=== PATIENT | male | born 1950 | race Caucasian/White ===

== ENCOUNTER → 2017-12-17 11:36 | Outpatient (CLI) | payer MEDICARE, OTHER, SELFPAY ==
[2017-12-17 15:03] LABS: Hemoglobin A1c 5.7 % (4.2-6.3)
[2017-12-17 15:12] LABS: AST(SGOT) 19 U/L (15-37); Alanine Aminotransfer ALT/SGPT 23 U/L (16-61); Albumin, Serum 3.6 g/dL (3.2-5.0); Alkaline Phosphatase 47 U/L (45-117); Anion Gap 9 (5-15); BUN 17 mg/dL (7-18); BUN/Creat Ratio 16.7 RATIO (10-20); Calcium,Total 8.2 mg/dL (8.5-10.1); Chloride 110 mmol/L (98-107); Cholesterol 201 mg/dL (200); Creatinine, Serum 1.02 mg/dL (0.70-1.30); EST Glomerular Filtration Rate 77 mL/min (>60); Est Glom Filt Rate - Afr Amer 93 mL/min (>60); Globulin 3.6 g/dL (2.2-4.2); Glucose 93 mg/dL (74-106); High Density Lipoprotein 32 mg/dL; Potassium 4.3 mmol/L (3.5-5.1); Protein, Total 7.2 g/dL (6.4-8.2); Sodium Level 143 mmol/L (136-145); Thyroid Stim Hormone (TSH) 4.17 uIU/mL (0.358-3.74); Triglycerides 145 mg/dL; Very Low Density Lipoprotein 29 mg/dL (5-40)
[2017-12-18 11:04] LABS: T4 Free Direct 0.78 ng/dL (0.76-1.46)
[2017-12-19 14:38] LABS: PTHIN 62.7 pg/mL (18.4-80.1)
== END ==
PROVIDERS: Family Provider Family Medicine; PCP Family Medicine; Visit Provider Family Medicine
DX: E88.81 Metabolic syndrome and other insulin resistance (principal)
CPT/HCPCS: 36415; 80053; 80061; 83036; 83970; 84439; 84443

== ENCOUNTER → 2018-09-28 11:03 | Outpatient (CLI) | payer MEDICARE, OTHER, SELFPAY ==
[2018-09-28 13:21] LABS: ALB/GLOB Ratio 1.1 RATIO (0.9-2.4); AST(SGOT) 22 U/L (15-37); Alanine Aminotransfer ALT/SGPT 28 U/L (16-61); Albumin, Serum 3.6 g/dL (3.2-5.0); Alkaline Phosphatase 60 U/L (45-117); Anion Gap 10 (5-15); BUN 14 mg/dL (7-18); BUN/Creat Ratio 14.3 RATIO (10-20); Calcium,Total 8.6 mg/dL (8.5-10.1); Chloride 107 mmol/L (98-107); Cholesterol 228 mg/dL (200); Creatinine, Serum 0.98 mg/dL (0.70-1.30); EST Glomerular Filtration Rate 80 mL/min (>60); Est Glom Filt Rate - Afr Amer 97 mL/min (>60); Globulin 3.4 g/dL (2.2-4.2); Glucose 99 mg/dL (74-106); High Density Lipoprotein 34 mg/dL; Potassium 4.2 mmol/L (3.5-5.1); Sodium Level 142 mmol/L (136-145); Triglycerides 195 mg/dL; Very Low Density Lipoprotein 39 mg/dL (5-40)
== END ==
PROVIDERS: Family Provider Family Medicine; PCP Family Medicine; Referring Provider Family Medicine; Visit Provider Nurse Practitioner Family
DX: E78.00 Pure hypercholesterolemia, unspecified (principal)
CPT/HCPCS: 36415; 80053; 80061; 82306

== ENCOUNTER 2018-11-30 08:41 | Emergency (ER) | payer MEDICARE, OTHER, SELFPAY ==
[2018-11-30 08:43] VITALS: BP 138/79; PULSE 84; RESP 16; TEMP 36.8; O2SAT 96; BMI 32.1
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
== END 2018-11-30 09:20 | disposition home or self-care (01) ==
LOC: ED 09:16
PROVIDERS: Emergency Provider Emergency Medicine; Family Provider Family Medicine; PCP Family Medicine
DX: S61.411A Laceration without foreign body of right hand, initial encounter (principal); S61.511A Laceration without foreign body of right wrist, initial encounter; S50.12XA Contusion of left forearm, initial encounter; S50.11XA Contusion of right forearm, initial encounter; V49.40XA Driver injured in collision with unspecified motor vehicles in traffic accident, initial encounter; Y93.89 Activity, other specified
CPT/HCPCS: 99285

== ENCOUNTER → 2019-11-01 11:16 | Outpatient (CLI) | payer MEDICARE, OTHER, SELFPAY ==
[2019-11-01 15:46] LABS: Anion Gap 3 (5-15); BUN 14 mg/dL (7-18); BUN/Creat Ratio 13.9 RATIO (10-20); Calcium,Total 8.2 mg/dL (8.5-10.1); Chloride 108 mmol/L (98-107); Cholesterol 221 mg/dL (200); Creatinine, Serum 1.01 mg/dL (0.70-1.30); EST Glomerular Filtration Rate 77 mL/min (>60); Est Glom Filt Rate - Afr Amer 94 mL/min (>60); Glucose 93 mg/dL (74-106); High Density Lipoprotein 34 mg/dL; Potassium 4.4 mmol/L (3.5-5.1); Sodium Level 139 mmol/L (136-145); Triglycerides 134 mg/dL; Very Low Density Lipoprotein 27 mg/dL (5-40)
== END ==
PROVIDERS: PCP Family Medicine; Referring Provider Family Medicine; Visit Provider Nurse Practitioner Family
DX: Z00.00 Encounter for general adult medical examination without abnormal findings (principal); I10 Essential (primary) hypertension; Z13.220 Encounter for screening for lipoid disorders; Z12.5 Encounter for screening for malignant neoplasm of prostate
CPT/HCPCS: 36415; 80048; 80061; 84153; G0103

== ENCOUNTER → 2019-12-13 12:00 | Outpatient (CLI) | payer MEDICARE, OTHER, SELFPAY ==
--- NOTE | 2019-12-13 12:05 | RAD_ITS ---
HISTORY: right knee pain ADDITIONAL HISTORY: None provided. EXAMINATION/TECHNIQUE: XR Knee Complete 4 Views or More Right Number of images including paperwork: 4 COMPARISON: None FINDINGS: BONES: No acute fracture. JOINTS: No subluxation. Mild to moderate tricompartmental degenerative changes including joint space narrowing and small osteophytes, most pronounced in the medial compartment. SOFT TISSUES: No distinct foreign body. RAD/Knee 4 or More Views IMPRESSION: Degenerative changes without acute osseous abnormality. at 0719 Reported and signed by: Eve Reed MD Electronically Signed: Eve Reed MD at 7:18 EDT Tel , Service support ,
== END ==
PROVIDERS: PCP Family Medicine; Referring Provider Nurse Practitioner Adult Health; Visit Provider Nurse Practitioner Adult Health
DX: M25.561 Pain in right knee (principal)
CPT/HCPCS: 73564

== ENCOUNTER → 2019-12-16 10:39 | Outpatient (CLI) | payer MEDICARE, OTHER, SELFPAY ==
--- NOTE | 2019-12-16 10:43 | RAD_ITS ---
STUDY: X-RAY - PELVIS AND RIGHT HIP REASON FOR EXAM: Male, 69 years old. Right hip pain, history of polio TECHNIQUE: 3 views of the pelvis and hip. COMPARISON: None. FINDINGS: There is a non-specific bowel gas pattern. Normal visualized soft tissue structures. There are degenerative changes of the sacroiliac joints. Normal bilateral superior and inferior pubic rami. There are degenerative changes of the pubic symphysis with articular narrowing and sclerosis. Normal bilateral ischial tuberosities. There are bilateral degenerative changes of the hips, right greater than left characterized by joint space narrowing, subchondral sclerosis and marginal osteophytes. RAD/HIP, UNI W/ Pelvis 2-3 Views IMPRESSION: Bilateral degenerative changes of the hips, right greater than left. Electronically Signed: Chary Leon MD at 18:28 EDT Tel , Service support ,
== END ==
PROVIDERS: PCP Family Medicine; Referring Provider Family Medicine; Visit Provider Family Medicine
DX: M25.551 Pain in right hip (principal)
CPT/HCPCS: 73502

== ENCOUNTER → 2020-05-01 11:21 | Outpatient (CLI) | payer MEDICARE, OTHER, SELFPAY | PROVIDERS: PCP Family Medicine; Visit Provider Family Medicine | DX: Z00.00 Encounter for general adult medical examination without abnormal findings (principal) ==

== ENCOUNTER → 2020-07-20 12:19 | Outpatient (CLI) | payer MEDICARE, OTHER, SELFPAY ==
[2020-07-06 15:59] VITALS: BMI 32.5
[2020-07-20 13:22] LABS: AST(SGOT) 14 U/L (15-37); Alanine Aminotransfer ALT/SGPT 27 U/L (16-61); Albumin, Serum 3.7 g/dL (3.2-5.0); Alkaline Phosphatase 57 U/L (45-117); Anion Gap 3 (5-15); BUN 10 mg/dL (7-18); BUN/Creat Ratio 11.7 RATIO (10-20); Calcium,Total 8.6 mg/dL (8.5-10.1); Chloride 109 mmol/L (98-107); Creatinine, Serum 0.86 mg/dL (0.70-1.30); EST Glomerular Filtration Rate 94 mL/min (>60); Est Glom Filt Rate - Afr Amer 113 mL/min (>60); Globulin 3.6 g/dL (2.2-4.2); Glucose 99 mg/dL (74-106); Magnesium 2.5 mg/dL (1.6-2.6); Protein, Total 7.3 g/dL (6.4-8.2); Sodium Level 139 mmol/L (136-145)
== END ==
PROVIDERS: PCP Family Medicine; Referring Provider Family Medicine; Visit Provider Family Medicine
DX: R00.2 Palpitations (principal)
CPT/HCPCS: 36415; 80053; 83735

== ENCOUNTER 2020-10-25 10:59 | Observation (INO) | payer MEDICARE, OTHER, SELFPAY ==
[2020-07-06 15:59] VITALS: BMI 32.5
--- NOTE | 2020-10-09 22:58 | PCM.HP.BLA ---
History and Physical History and Physical [facility] Patient Name: Jonas Guerrero : 1950 From: RODY RAGLAND PA-C DATE OF SURGERY: 10/25/2020 SCHEDULED PROCEDURE: right total hip arthroplasty HISTORY OF PRESENT ILLNESS: This is a 69-year-old male who is been having ongoing pain in his right hip for several years. It is been progressively been getting worse over the past several months. His pain has been intermittent and aching as well as sore. Patient has increased pain going up and down stairs, walking and trying to pick things up from the floor. Pain can reach 4/10. He does have start up pain. Pain does not wake him at night but he does require to sleep with a pillow between his legs. He has difficulty with activities of daily living and occluding putting his socks and shoes on as well as shopping. He has difficulty with yard work due to the pain. He has tripped/stumbled due to the pain. Patient has attempted rest, ice, elevation and previous cortisone injections. Patient has also tried qyto-bah-qydtrif ibuprofen with minimal relief. He has been using a cane for ambulatory assistance. After failing conservative measures and discussing treatment options with Dr. Obie Chamorro he does wish to proceed with a right total hip arthroplasty. Patient does have history of polio as a kid and the left leg is shorter than the right. we are obtaining surgical clearance from the primary care physician Dr. Kurt Addison. He does have previous history of a DVT. REVIEW OF SYSTEMS: ROS: Const: Reports difficulty sleeping, but denies anorexia, anxiety, change in appetite, fever, weight change. CV: Denies chest pain, heart murmur, irregular heartbeat and peripheral vascular disease. Resp: Denies asthma, cough, pneumonia, sleep apnea, shortness of breath, tuberculosis and wheezing. GI: Denies constipation, diarrhea, heartburn, nausea, rectal itching, bloody stools and vomiting. : Denies incontinence. Musculo: Reports weakness, but denies leg swelling, pain and trouble walking. Skin: Denies Raynaud's, history of shingles and tattoo. Neuro: Denies ambulatory dysfunction, dizziness, numbness/tingling and tremor. Psych: Denies anxiety, depression, insomnia, mental illness and stress. Levon/Lymph: Denies anemia, bleeding/bruising tendency and past transfusion. Reviewed, no changes. PAST MEDICAL HISTORY: Advance Care Plan: No Advance Directives Effective Date: 06/19/2020 PMH: Medical Problems: Asthma, Arthritis, Polio (Childhood), DVT RT Leg 2010, Enlarged prostate Accidents: None Surgical Hx: Tonsillectomy - 1971-[place] Polio Related Surgery - 1958-[facility] 1978-[place] Vasectomy - (1994) Subderal Hematoma - (2011) Gallbladder - 2009 Anesthesia Complications: None Assistive Devices: Glasses Reviewed and updated. SOCIAL HISTORY: SH: Marital: .Occupation: Retired.Work Status: Retired.Hand Dominance: Left-Handed. Personal Habits: Cigarette Use: Former.Smokeless Tobacco: Never Used Smokeless Tobacco.E-Cigarette Use: Never used.Alcohol: Has consumed alcohol in the past.Drug Use: Denies Use.Enjoy Exercising: Exercises 1-3 x/month. Reviewed and updated. VITALS: Ht: 67.3 Wt: 209lb Wt k.802 BMI: 32.4 BP: 149/85 Pulse: 85 Resp: 14 T: 97.5 T: 36.4C Pain Level: 1 ALLERGIES: No Known Drug Allergy MEDICATIONS: Saw [place] 1po qday, Vitamin B Complex 1po qday, Vitamin C 500 mg 1 by mouth every day, Vitamin D3 25 mcg (1000 Ut) 2po bid, Garlic 1000 mg 1po qday, Ginkgo Biloba 120 mg 1po qday, Angelina Root 550 mg 1po qday, Coq-10 100 mg 1 by mouth every day, Resveratrol 1po qday, Grape Seed Extract 100 mg 1po qday, Turmeric Curcumin 500 mg 2po qdy, Milk Thistle 1000 mg 2po qday, Nathan Seed Oil Extract 1000 mg 2po qday, Vinegar Liquid 2 tablespoons daily, Quinapril HCL 5 mg 1po qday, [place] Oil , Ginsing Coimplex , Magnesium , Proair HFA 108 (90 Base) mcg/Act PRE-OP EXAM: General appearance:NORMAL Other: Eyes: Conjunctivae and lids: NORMAL Pupils: ERR Ears, Nose, Mouth, and Throat: NORMAL Other: Inspection of lips, teeth and gums: NORMAL Other: Neck: Examination of neck: no masses noted. Respiratory: Assessment of respiratory effort: NORMAL Other: Auscultation of lungs: clear to auscultation no wheezes, rhonchi or rales. Cardiovascular: Auscultation of heart: regular rate and rhythm, no murmurs, gallops or rubs. Exam of carotid arteries: NORMAL Other: Gastrointestinal: Exam of abdomen: soft, nontender, nondistended bowel sounds present. PHYSICAL EXAMINATION: Patient does walk with an antalgic gait. There is atrophy on the left when compared to the right. Right hip is cool to touch without erythema or signs of infection. Right hip flexion 70, internal rotation 3, external rotation 25. He has increased pain with range of motion of the thigh. Sensation intact to light touch. IMAGING STUDIES: Previous x-rays of the right hip reveal joint space narrowing, subchondral sclerosis, osteophyte formation consistent with moderate to severe stage 3-4 osteoarthritis. IMPRESSION: 1. Right hip osteoarthritis 2. History of DVT right leg 2010 3. Enlarged prostate 4. Asthma 5. History of polio in childhood PLAN: Dr. Obie Chamorro did discuss and review with the patient all treatment options including surgical versus nonsurgical options. Patient does wish to proceed with the above-stated procedure. Potential risks, benefits, and complications of the procedure were discussed in detail including but not limited to , infection, nerve and blood vessel damage, persistent pain, numbness, tingling, paresthesias, blood clot, pulmonary embolism, and requirement for possible further surgery. The patient expressed full understanding and has no further questions for the doctor. Patient does agree to proceed with the above-stated procedure and has signed the surgery consent form. We discussed the current risks associated with COVID 19. This does include the risk of exposure while in the hospital. Patient was reassured local hospitals have low infection rates and are taking all necessary precautions to avoid exposure to patients. In addition, we discussed strategies that can be used to help limit exposure including those that limit the patient's time in the hospital. Also using strategies to limit the patient's need for continued inpatient services after being discharged from the hospital. Patient was notified that we will need to comply with any screening or testing the hospital wishes to perform or that surgery may be delayed for any positive results. This dictation was created using voice recognition software. Phonetic and/or grammatical errors may exist. ___ I have re-examined the patient. There are no clinical changes since date of exam. ___ See progress notes for changes. ___ Dictated on admission Date: Time: Signature:
--- NOTE | 2020-10-17 10:06 | EKG12_ITS ---
Test Reason : PRE-OP Blood Pressure : / mmHG Vent. Rate : 070 BPM Atrial Rate : 070 BPM P-R Int : 140 ms QRS Dur : 080 ms QT Int : 368 ms P-R-T Axes : 037 027 020 degrees QTc Int : 397 ms Normal sinus rhythm Poor R- wave progression Confirmed by ANASTACIO CANELA, LUH ([id number]), magazine editor [place] ([id number]) on 10/18/2020 2:01:28 PM Referred By: Obie Chamorro Confirmed By:LUH CHAVES MD
[2020-10-17 11:00] LABS: Absolute Lymphocyte Count 1.11 X10^3/uL (0.83-4.51); Absolute Neutrophil Count 3.5 X10^3/uL (2.0-7.7); Basophil# 0.04 X10^3/uL; Basophil% 0.7 % (0-1); Eosinophil# 0.11 X10^3/uL; Eosinophils% 2.1 % (0-5); Hematocrit 42.9 % (40-54); Hemoglobin 14.5 g/dL (13.0-16.5); Lymphocyte # 1.11 X10^3/ul (0.83-4.51); Lymphocyte % 20.7 % (19-41); Mean Corp Hgb Conc 33.8 g/dL (32-36); Mean Corpuscular Hgb 29.9 pg (27.0-32.0); Mean Corpuscular Volume 88.5 fL (80-94); Mean Platelet Vol. 9.7 fl (6.2-12.0); Monocyte# 0.56 X10^3/uL; Monocyte% 10.5 % (0-10); NRBC Flagged by Analyzer 0 % (0-5); Neutrophil # 3.51 X10^3/uL (2.7-7.7); Neutrophil % 65.6 % (47-70); Platelet Count 193 K/mm3 (150-450); RBC Distribution Width CV 14.6 % (11.6-14.6); RBC Distribution Width SD 47.2 fl (35.1-43.9); Red Blood Count 4.85 M/mm3 (4.6-6.2); White Blood Count 5.4 K/mm3 (4.4-11.0)
[2020-10-17 11:27] LABS: Magnesium 2.2 mg/dL (1.6-2.6)
[2020-10-17 11:28] LABS: Anion Gap 6 (5-15); BUN 17 mg/dL (7-18); BUN/Creat Ratio 17.6 RATIO (10-20); Calcium,Total 8.4 mg/dL (8.5-10.1); Chloride 111 mmol/L (98-107); Creatinine, Serum 0.97 mg/dL (0.70-1.30); EST Glomerular Filtration Rate 81 mL/min (>60); Est Glom Filt Rate - Afr Amer 98 mL/min (>60); Glucose 99 mg/dL (74-106); Sodium Level 139 mmol/L (136-145)
[2020-10-21 09:29] LABS: Albumin, Serum 3.6 g/dL (3.2-5.0)
[2020-10-25] VITALS (13 sets, daily range): BP systolic 111–144; BP diastolic 63–81; PULSE 60–87; RESP 16–18; TEMP 36.5–37.1; O2SAT 95–100; BMI 32.4
--- NOTE | 2020-10-25 07:13 | OP.PCM_ITS ---
Report of Operation Date of Procedure: 10/25/20 Pre-Operative Diagnosis: Right hip primary osteoarthritis Post-Operative Diagnosis: Right hip primary osteoarthritis Surgery/Procedure Performed:: Right minimally invasive direct anterior total hip replacement Description of Surgical Findings:: Stable hip with equal leg length Surgeon: Obie Chamorro papier mache' molder: Gavin Medina Type of Anesthesia: Spinal Anesthesiologist: Maynor Zapata Special Medications: 2 g Ancef, 1 g TXA at incision, 1 g TXA closure, 10 mg Decadron, joint cocktail (5 mg Duramorph, 30 mL of 0.5% Ropivicaine, 1000 units of epinephrine, 30 mg of Toradol) Specimen's removed: Bony cuts Estimated Blood Loss (mL): 250 Fluids Replaced: 1100 mL crystalloid Description of Procedure: Components used: 1. Accolade 2 [place] femoral stem size 3 132? 2. Que trident 2 acetabular shell size 56 mm 3. Que X3 polyethylene F 4. [place] Biolox delta 36mm, 5mm femoral head Brief history operative indications: 69 yo M who failed conservative measures for their hip osteoarthritis. X-rays were consistent with osteoarthritis including joint space narrowing, osteophyte formation and subchondral cysts. Total hip replacement was discussed with the patient with risks and benefits including but not limited to blood loss, DVTs, PEs, neurovascular damage, dislocation, general risks of anesthesia including loss of life. Patient demonstrated an understanding medical clearance is obtained the patient was consented for surgery. Procedure: On the date of procedure the patient's right hip was marked in the preoperative area. Patient was then taken back to the operating room where anesthesia assumed control of the C-spine and airway and administered anesthetic. Patient was transferred to the operating table and placed in the supine position. The hips were placed at the break of the bed and a sacral bump was placed. The right lower extremity was then prepped out in a sterile fashion using chlorhexidine while the surgeon scrubbed. The PA was vital in the positioning of the patient. Upon reentering the room the right lower extremity was draped in the standard orthopedic fashion and the incision was marked. A timeout was called and everyone agreed upon the side, the site, the procedure be performed, antibody given, and patient's identity. At this time incision was made through skin, subcutaneous tissue, and fat down to fascia. The fascia was then incised and the TFL was retracted laterally. A retractor was placed on the lateral border of the femoral neck. Attention was directed to the inferior portion of the approach and all crossing vessels were identified and appropriately coagulated. A retractor was then placed on the medial portion of the femoral neck. The anterior capsule was then cleared of all soft tissue and then H shaped capsulotomy was made. The retractors were then placed inside the capsule. The femoral neck was identified and a cleanup cut was made. At this time a power corkscrew was used to remove the femoral head. Attention was then turned toward the acetabulum where the soft tissues were appropriately retracted and the acetabulum was sequentially reamed to 56 mm. A 56 mm cup was then selected and impacted into place. Acetabular liner was impacted into place and locking mechanism was verified. The position of the acetabular cup was then verified under live fluoroscopy. Attention was then turned to the femur. Soft tissue releases on the medial and lateral femoral neck were appropriately done, the leg was externally rotated and lateralized. A Johnston retractor was placed medially and proximally to the greater trochanter this allowed appropriate visualization and exposure of the femoral canal. Rongeour was then used to remove excess lateral bone. A canal finder and entry broach were used to open the proximal canal. Once we verified we were down the femoral canal we subsequently broached up to a size 3 femur. The appropriate neck was placed in the previously selected head was trialed with a 5 mm neck. Traction was pulled and the hip was reduced with internal rotation. Once it was appropriately reduced and stability was checked. There was minimal shuck, equal leg lengths and appropriate stability with hyperextension and external rotation as well as with 90? flexion and internal rotation. Fluoroscopy was then also used to verify the position of the components and leg lengths using the contralateral side for comparison. The trial components were then dislocated the proximal femur was again exposed and the components were removed from the wound. The final components were verified and opened. The wound was copiously irrigated out with normal saline. The acetabulum was checked for any residual debris. The final components were placed and impacted. Traction and internal rotation were again used to reduce the hip. After adequate reduction the hip remained stable with appropriate leg lengths. The final components were once again checked with live fluoroscopy and were found to be satisfactory. The wound was then copiously irrigated with normal saline once more, and hemostasis was obtained. Closure was then done using #1 Vicryl runner to close the fascia. A 2-0 vicryl interuppted sutures were used to close the subcutaneous skin. A 3-0 Monocryl and Steri-Strips were used for final skin closure. A Silverlon dressing was placed. Patient was awakened by anesthesia and transferred to [facility]. Patient was then transferred to the PACU for recovery. Postoperative plan: Patient will get 24 hours postop antibiotics. Patient will get in-house physical therapy and will be weight-bear as tolerated. Patient will follow up in office in 2 weeks for a wound check and x-rays. Aspirin 81 mg twice daily. During the course of the procedure the physician viscosity inspector (PE) played a vital role. Their intimate knowledge of my steps in the procedure aided in safe and expedient completion of the procedure. The PE played a vital rolls in positioning particularly in obtaining the appropriate positioning of the sacral bump. The PE was also vital in the retraction of soft tissues during the exposure and especially the femoral work as this is a vital part of the procedure to prevent complications and fractures. The PE was also vital and protecting soft tissues during times of bony cuts and reaming. He also played a vital role in closure with my direct supervision. The PE was also important during reduction and dislocation of the joint and trials intraoperatively. Complications No intraoperative complications Admit VTE Documentation VTE Present on Admission: No VTE Mechan Device Prophylaxis: SCD's and Thigh High JAYMIE Hose VTE Pharm Prophylaxis ordered?: Yes
[2020-10-25] MEDS: Celecoxib 200 MG Capsule 400 MG PO (08:38)
[2020-10-25] MEDS: Gabapentin 600 MG Tablet PO (08:38)
[2020-10-25] MEDS: Acetaminophen 500 MG Tablet 1000 MG PO ×2 (08:38→21:01)
[2020-10-25] MEDS: Lactated Ringers 1,000 ML 999 ML IV ×2 (08:39→11:30)
[2020-10-25] MEDS: Lactated Ringers 1,000 ML 100 ML IV ×2 (08:42→16:15)
[2020-10-25] MEDS: Cefazolin 2 GM in 0.9% Normal Saline 100 ML IV (10:21)
[2020-10-25 10:30] LABS: Bedside Glucose 98 mg/dL (70-110)
[2020-10-25] MEDS: dexAMETHasone 10 MG/ML Vial IV (10:35)
--- NOTE | 2020-10-25 11:15 | RAD_ITS ---
STUDY: X-RAY - PELVIS AND RIGHT HIP REASON FOR EXAM: Fluoroscopy for right hip arthroplasty. TECHNIQUE: 2 intraoperative images of the pelvis and hip. COMPARISON: Radiographs 12/16/2019. FINDINGS: There is a right hip arthroplasty without evidence of complication. 4.5 seconds of fluoroscopy time was used. Electronically Signed: Liborio Link MD at 14:15 EDT Tel , Service support , RAD/Hip 1 view with Pelvis
[2020-10-25] MEDS: Lactated Ringers 1,000 ML 125 ML IV (12:30)
--- NOTE | 2020-10-25 12:45 | RAD_ITS ---
STUDY: X-RAY - PELVIS AND RIGHT HIP REASON FOR EXAM: Postoperative evaluation of right hip arthroplasty. TECHNIQUE: 2 views of the pelvis and hip. COMPARISON: Radiographs 12/16/2019. FINDINGS: There is postoperative gas in the soft tissues. There are mild degenerative changes of the sacroiliac joints bilaterally. Normal bilateral superior and inferior pubic rami. Normal pubic symphysis. Normal bilateral ischial tuberosities. There is a right hip arthroplasty without evidence of complication. RAD/Hip Min 2 Views (Portable) IMPRESSION: Uncomplicated right hip arthroplasty. Electronically Signed: Liborio Link MD at 13:46 EDT Tel , Service support ,
--- NOTE | 2020-10-25 14:15 | SUR.PHASEI ---
on disconnect got transfer to the floor pt noted a mass on his lower right /umbilicus area that has slight pain when pressed down on. al lovelace advertising editor advised and called int [facility]. Carli sage pt and talking with dr. crenshaw.
--- NOTE | 2020-10-25 15:14 | SUR.PHASEI ---
pt bladder scanned after dr crenshaw assessed and there was 1300< urine noted pt straight cathed and being sent to the floor.
--- NOTE | 2020-10-25 15:18 | SUR.PHASEI ---
pt straight cathed for 1400 urine
[2020-10-25] MEDS: Tamsulosin HCl 0.4 MG Capsule PO (16:13)
--- NOTE | 2020-10-25 16:43 | PN.HOSP_ITS ---
Documented by User: Albert SPARKS 10/25/20 16:50 Subjective Subjective Patient is a 69-year-old male comfortably resting in bed, alert and oriented x3. Denies chest pain, shortness of breath, palpitations, hemoptysis, sputum production, fever, chills, N/V/D. Objective Data Objective Data Vital Signs: Vital Signs Temp Pulse Resp BP Pulse Ox 97.8 F 60 16 133/78 H 96 10/25/20 15:33 10/25/20 15:33 10/25/20 15:33 10/25/20 15:33 10/25/20 15:33 Oxygen Flow Rate (L/min) 6 Oxygen Delivery Method Room Air Weight: 207 lb 0.225 oz Body Mass Index (BMI) 32.4 Intake & Output: Intake and Output for Last 24 Hours 10/23/20 10/24/20 10/25/20 23:59 23:59 23:59 Intake Total 4285.5 / 4285.5 Balance 4285.5 / 4285.5 Lab / Micro Data Result Diagrams: 10/17/20 10:33 10/17/20 10:33 Labs: Laboratory Results - last 24 hr 10/25/20 08:36: POC Glucose 98 Micro: Microbiology 10/20/20 09:30 Interface Orders SARS-CoV-2 Antigen (Rapid) - Final 10/17/20 10:33 Interface Orders Nasal Screen MRSA/MSSA - Final Radiography Diagnostic Testing: Radiology Impression Hip/Pelvis X-Ray 10/25/20 11:15 Hip X-Ray 10/25/20 12:45 IMPRESSION: Uncomplicated right hip arthroplasty. Electronically Signed: Liborio Link MD at 13:46 EDT Tel , Service support , Physical Exam Const alert, oriented x3 and no apparent distress HEENT head/scalp atraumatic and moist oral mucous membranes Head and Scalp: normocephalic Eyes EOMs intact bilaterally and conjunctivae normal Neck no lymphadenopathy, supple and no JVD Resp normal respiratory effort, no retractions, no use of accessory muscles and clear to auscultation bilaterally Cardio regular rate, regular rhythm, no murmurs and no JVD GI normal to inspection, nondistended, normoactive bowel sounds, soft to palpation and non-tender Extremity normal to inspection, full ROM and no clubbing, cyanosis or edema Skin no rashes or lesions noted, no wounds and skin turgor normal Neuro CN's II-XII intact bilaterally Psych affect normal Assessment & Plan Assessment/Plan (1) COPD (chronic obstructive pulmonary disease): (2) BPH (benign prostatic hyperplasia): (3) Hypertension: PLAN: Patient is a 69-year-old male who presents to the hospital medicine team on consult from orthopedics status post right minimally invasive direct anterior total hip replacement for right hip primary osteoarthritis. 1) HTN Stable, continue lisinopril 2) COPD Not in acute exacerbation, currently satting 96% on room air. Continue albuterol as needed. 3) BPH Continue Flomax. 4) osteoarthritis status post YARIEL Management per orthopedics. DVT prophylaxis - Xarelto Patient seen by Albert Mai PA-C, under the supervision of Dr. Nash. Documented by User: Dr. Fabby Nash DO 10/25/20 18:01 Subjective Subjective Patient was seen in conjunction with BRIDGER Lemos. The following is re presentation of my independent history and physical. The following represents any addendum to the above. Patient reports he is feeling okay. He is not having any considerable pain. Indicates his right lower extremity is always swollen. States he had a DVT in that lower extremity remotely. He is not currently anticoagulated. His plan is for discharge tomorrow to home in the afternoon as long as he remains stable. Objective Data Lab / Micro Data Result Diagrams: 10/17/20 10:33 10/17/20 10:33 Physical Exam Const alert, oriented x3 and no apparent distress Constitutional Narrative: Older white male, sitting up in a chair at the bedside, nursing at bedside, patient appears comfortable Exam Limitations: no limitations HEENT head/scalp atraumatic Head and Scalp: normocephalic Resp normal respiratory effort, no retractions, no use of accessory muscles and clear to auscultation bilaterally Auscultation: Negative for crackles, rales, rhonchi or wheezes Cardio regular rate, regular rhythm, S1 normal heart sound, S2 normal heart sound, no murmurs, no rub, no gallops, no clicks and no JVD GI normal to inspection, nondistended, normoactive bowel sounds, soft to palpation, non-tender and non-distended Extremity normal to inspection Extremity Narrative: Trace right lower extremity edema-chronic, no cyanosis or clubbing, polar ice on right hip, SCDs in place, JAYMIE hose on General Extremity: edema Peripheral Pulses: Yes pulses 2+ throughout Neuro oriented x3, CN's II-XII intact bilaterally and no focal motor deficits Sensorium / Orientation: awake, alert, oriented to person, oriented to place and oriented to time Speech: speech normal Psych affect normal Assessment & Plan Assessment/Plan (1) COPD (chronic obstructive pulmonary disease): (2) Hypertension: (3) Hyperlipidemia: (4) History of DVT in adulthood: (5) History of subdural hematoma: (6) LA (lupus anticoagulant) disorder: PLAN: R hip OA status post minimally invasive anterior YARIEL -Postop day 0 -Pain management per primary service -Patient is progressing well with minimal pain -Recommend scheduled bowel regimen until patient is off narcotics -PT/OT -Probable discharge tomorrow if remains stable through the night which is anticipated History of right lower extremity DVT/lupus anticoagulant -Patient is not on chronic anticoagulation -History of subdural hematoma -Will be on Xarelto for prophylaxis per primary service until notified otherwise -Patient will be high risk for postoperative DVT Hypertension Continue lisinopril COPD -Patient is on room air -Continue nebulizer as needed History of subdural hematoma -This was spontaneous and precipitated by Lovenox use -No current issues BPH -Continue Flomax DVT prophylaxis -As per primary service Charges/Coding Visit Charges Inpatient E&M: 90609 Subs Hosp L2
[2020-10-25] MEDS: Ensure Surgery 237 ML LIQUID PO (17:32)
[2020-10-25] MEDS: Cefazolin 1 GM/50 ML BAG IV (17:32)
[2020-10-25] MEDS: Senna/Docusate Sodium 1 Tablet 2 TABLET PO (21:02)
[2020-10-26] MEDS: Cefazolin 1 GM/50 ML BAG IV (01:43)
[2020-10-26 04:09] VITALS: BP 122/56; PULSE 73; RESP 16; TEMP 37; O2SAT 99
[2020-10-26] MEDS: Acetaminophen 500 MG Tablet 1000 MG PO ×2 (05:52→13:15)
[2020-10-26] MEDS: Rivaroxaban 10 MG Tablet PO (05:53)
[2020-10-26 06:24] LABS: Hemoglobin 12.7 g/dL (13.0-16.5); Mean Corp Hgb Conc 33.4 g/dL (32-36); Mean Corpuscular Hgb 30.4 pg (27.0-32.0); Mean Corpuscular Volume 90.9 fL (80-94); Mean Platelet Vol. 10.2 fl (6.2-12.0); Platelet Count 172 K/mm3 (150-450); RBC Distribution Width CV 14.5 % (11.6-14.6); RBC Distribution Width SD 48.1 fl (35.1-43.9); Red Blood Count 4.18 M/mm3 (4.6-6.2); White Blood Count 12.6 K/mm3 (4.4-11.0)
[2020-10-26 06:53] LABS: Anion Gap 7 (5-15); BUN 13 mg/dL (7-18); BUN/Creat Ratio 15.5 RATIO (10-20); Calcium,Total 8.3 mg/dL (8.5-10.1); Chloride 110 mmol/L (98-107); Creatinine, Serum 0.84 mg/dL (0.70-1.30); EST Glomerular Filtration Rate 96 mL/min (>60); Est Glom Filt Rate - Afr Amer 116 mL/min (>60); Estimated Creatinine Clearance 75.41 ml/min; Glucose 117 mg/dL (74-106); Potassium 3.8 mmol/L (3.5-5.1); Sodium Level 141 mmol/L (136-145)
[2020-10-26] MEDS: Ensure Surgery 237 ML LIQUID PO ×2 (08:26→13:15)
[2020-10-26 09:32] VITALS: BP 120/68; PULSE 70; RESP 16; TEMP 37.2; O2SAT 98
[2020-10-26 09:40] VITALS: PULSE 68
[2020-10-26] MEDS: Ketorolac 15 MG/ML Vial IV (09:43)
[2020-10-26] MEDS: Cholecalciferol (VIT D3) 25 MCG TABLET (1,000 UNITS) PO (09:44)
[2020-10-26] MEDS: Famotidine 20 MG Tablet PO (09:44)
[2020-10-26] MEDS: Lisinopril 5 MG Tablet PO (09:44)
[2020-10-26] MEDS: 0.9% Saline Lock 10 ML Syringe IV (09:44)
[2020-10-26] MEDS: Senna/Docusate Sodium 1 Tablet 2 TABLET PO (09:44)
--- NOTE | 2020-10-26 10:34 | CASEMGMT ---
Addendum entered by Foster Burris 10/26/20 11:34: Pt being discharged home on Xarelto [address] mg[address] to [facility]. Xarelto card unable to be applied, d/t 10 mg strength. Cost for Xarelto is: $211.25. Total cost for all new scripts are: $239.21. Pt made aware and states this is affordable. The walker pt is borrowing has been delivered to pt and is in his room now. The height is appropriate for pt and therapy to work w/pt today using this walker. Original Note: RN CM ICT SUPPORT TECHNICIANS CM to room to meet with patient for initial transition planning/care coordination assessment. RN ANITA introduced self and role at [facility]. Pt voices understanding and consents to assessment at this time. Pt sitting up in recliner chair in no distress at this time. Pt is A/O at this time and answers all questions appropriately. Care providers, pharmacy, and demographics verified/updated at this time. PCP:Dr Addison Specialists:Dr Chamorro-cintia Preferred Pharmacy:[facility] Insurance: [facility], [place] Prescription Benefit: Yes Living Will/HPOA: Pt does not currently have LW/HCPOA and declines info at this time. He states he has all the paperwork @ home and it is filled out, he just needs to have 2 witnesses to sign to complete it. LNOK: , [place]. Living Arrangements: Lives w/ in one-story home w/5 [address]. Independent prior to surgery. able to help, if needed. Transportation: drives and pt denies transportation concerns. DME: States has the following DME:extended tub bench (borrowing from family), cane, grab bars, hand held shower, and walker, that he is also borrowing form a friend. Pt reports this walker is too low, and his sister also has one that he plans to borrow. HERMAN HOWARD suggested this walker be brought to [facility] to have it assessed to ensure it is the correct height/size. He states he will see if someone can bring it in today, but Informed pt that HERMAN HOWARD could get FWW for him, through his insurance today before he discharges, but he wants to see if his sisters walker will work for him before doing this. HERMAN HOWARD also gave pt a script for a FWW, in case his sisters walker is not correct height. Pt states no need for further DME at this time. HHC/SNF: No history of either. Pt wishes to have OP therapy @ [facility] and appt has been made for 10/30/20 @ 1300. Pt is aware. Pt wishes to return home and states has no concerns with going home at time of discharge. CM to follow for any further discharge planning/needs. Pt voices no further concerns/needs at this time. Advised pt to ask for CM if any further questions/concerns/needs arise. Voices understanding. [employer]ARDS form explained re: Observation status for treatment of rt total hip arthroplasty. Explained hospitalization will be paid per insurance policy for Outpatient billing and condition will continue to be evaluated for Inpt necessity. Also let pt know that [employer] sends paper in the billing packet with their phone number if questions arise. Discussed Pharmacy section of EDWARDS form and self administered medication guideline. Pt verbalizes understanding and does not have further questions. Form signed, copy made and placed in chart, and original given to pt. PLAN: Home w/family support, discharge plans in place, and OP therapy @ [facility]. Lavern CAZARES RN CM
--- NOTE | 2020-10-26 10:40 | PCM.PN.ORT ---
Subjective Subjective The patient was sitting in bedside chair upon examination. Patient denies any chest pain, shortness of breath, dizziness, lightheadedness, nausea or vomiting, or calf pain. Pain is controlled on medications. No adverse overnight events. Overall patient is doing well from an orthopedic standpoint. Patient did have postoperative urinary retention which did require shannon placement. Patient states this has happened in the past with previous surgery but only treated by PCP. Never has seen urologist. Objective Data Objective Data Vital Signs: Vital Signs Temp Pulse Resp BP Pulse Ox 98.9 F 68 16 120/68 98 10/26/20 09:32 10/26/20 09:40 10/26/20 09:32 10/26/20 09:32 10/26/20 09:32 Oxygen Flow Rate (L/min) 6 Oxygen Delivery Method Room Air Weight: 93.9 kg Body Mass Index (BMI) 32.4 Intake & Output: Intake and Output for Last 24 Hours 10/24/20 10/25/20 10/26/20 23:59 23:59 23:59 Intake Total 6388.83 / 6388.83 908.92 / 908.92 Output Total 980 / 980 1475 / 1475 Balance 5408.83 / 5408.83 -566.08 / -566.08 Lab / Micro Data Result Diagrams: 10/26/20 06:04 10/26/20 06:04 Labs: Laboratory Results - last 24 hr 10/26/20 06:04: WBC 12.6 H, RBC 4.18 L, Hgb 12.7 L, Hct 38.0 L, MCV 90.9, MCH 30.4, MCHC 33.4, RDW Std Deviation 48.1 H, RDW Coeff of Noemi 14.5, Plt Count 172, MPV 10.2 10/26/20 06:04: Sodium 141, Potassium 3.8, Chloride 110 H, Carbon Dioxide 24.0, Anion Gap 7, BUN 13, Creatinine 0.84, Estim Creat Clear Calc 75.41, Est GFR (MDRD) Af Amer 116, Est GFR (MDRD) Non-Af 96, BUN/Creatinine Ratio 15.5, Glucose 117 H, Calcium 8.3 L Micro: Microbiology 10/20/20 09:30 Interface Orders SARS-CoV-2 Antigen (Rapid) - Final 10/17/20 10:33 Interface Orders Nasal Screen MRSA/MSSA - Final Radiography Diagnostic Testing: Radiology Impression Hip/Pelvis X-Ray 10/25/20 11:15 Hip X-Ray 10/25/20 12:45 IMPRESSION: Uncomplicated right hip arthroplasty. Electronically Signed: Liborio Link MD at 13:46 EDT Tel , Service support , Physical Exam Narrative Vital signs stable and afebrile. Patient is able to plantarflex and dorsiflex actively. Sensation is intact to light touch to saphenous, sural, superficial and deep peroneal, and tibial distribution. Dressing is clean dry and intact. Negative Homans bilaterally, negative signs and symptoms of DVT. Const alert, oriented x3 and no apparent distress Assessment & Plan Assessment/Plan (1) History of total right hip replacement: PLAN: 1. S/P right direct anterior total hip arthroplasty POD #1 2. Continue Pain Medications: Tylenol and oxycodone 3. DVT Prophylaxis: Xarelto secondary to previous history of DVT in the past, will do this for 2 weeks postoperatively followed by aspirin 81 mg twice daily for an additional 2 weeks 4. PT/OT: Weightbearing as tolerated 5. H & H: 12.7/38.0, asymptomatic. Postoperative anemia secondary to acute blood loss from surgery without any intra operative complications. 6. Reactive leukocytosis: Currently 12.6, afebrile. Patient did receive Decadron intraoperatively 7. Continue postoperative medical management per medicine: Patient does have some urinary retention in which she has required a Shannon catheter. This will be pulled in which instructions and orders were given to the nurse. Patient will also utilize Flomax twice daily in the hospital. Plan will be for discharge this afternoon and patient may require Shannon catheter on discharge if he is not able to urinate on his own. This would also require follow-up with urologist. Both the hospitalist and myself did encourage the patient to schedule appointment with urologist. Flomax prescription will be given. Case was discussed with the hospitalist and she is in agreement. 6. Encouraged Incentive Spirometry 7. Disposition: Plan will be for possible discharge home this afternoon as long as patient tolerates physical therapy, pain is well controlled, and medically stable. Patient may require Shannon catheter if he is not able to urinate on his own. Highly recommended follow-up in appointment with urologist. He will follow-up with his primary care physician for sure. Prescriptions will be E scribed to [facility]. I explained to the patient to try to limit the narcotic as this can contribute into his urinary retention. He did voice understanding. No driving for 6 weeks postoperatively. Patient has outpatient physical therapy established. He will follow-up per postop instructions.. I have reviewed the [place] Automated Rx Reporting System (OARRS) report for this patient for refill pattern and other prescriber involvement as part of the appropriate surveillance for the provision of acute and chronic controlled medications. The report was requested and reviewed on the date of this entry and was considered in the prescribing process.
[2020-10-26] MEDS: Tamsulosin HCl 0.4 MG Capsule PO (11:05)
--- NOTE | 2020-10-26 11:09 | PCM.DC ---
Discharge Instructions Diet Discharge Diet: No restrictions Activity Discharge Activity: May Not Drive (while taking narcotic pain medications.) May shower in (days): 1 (only if incision is dry and without drainage. Do NOT soak/submerge in tub/pool/patterson/stream/hot tub.)) Ice area for (Minutes): 20 (Every 1-2 hours while [address] barrier between ice and skin.) Weight Bearing Status: Weight bearing as tolerated Keep extremity elevated above heart level: Operative Extremity Dressing / Incision Call your doctor if your incision/area has: Continuous Slow Oozing, Sudden Increased Bleeding, Increased Pain/ Swelling, Increased Redness and Foul Smelling Discharge Call your doctor if you observe: Fever of 101 or Higher, Shortness of breath, Chest pain, Calf discomfort and Uncontrolled pain Remove Dressing in: 4 days (Okay to remove dressing on October 30, 2020) Additional Dressing/Incision Instructions:: Follow [facility] Post-op Instructions. Once postoperative dressing has been removed, only use gentle soap and water over the incision. Do not use any ointments, Neosporin, salves, alcohol pads over the incision for 6 weeks postoperatively. Do not submerge underwater for 6 weeks postoperatively. Continue with JAYMIE hose/elastic stockings for 2 weeks postoperatively. May remove at nighttime but needs to be placed back on the leg during the day. Do NOT use alcohol with narcotic pain medication. Do NOT make important decisions while taking narcotic medication. If you have problems with taking your medication (rash, itching, nausea, etc.) call the office at once. Follow Up Care Test Results: Test results from this visit will be discussed in further detail at your follow-up appointment, if applicable. Discharge Plan Admission Admit Date/Time: 10/25/20 10:59 Attending Provider: Obie Chamorro Primary Care Provider: Kurt Addison Consulting Providers: Fabby Nash Discharge Orders/Prescriptions Prescriptions: New acetaminophen 500 mg Tablet 1,000 mg PO Q8 Qty: 100 RF: 0 oxycodone 5 mg Tablet 5 - 10 mg PO Q4H PRN PRN (Reason: Pain Score 4-10) 4 Days Qty: 48 RF: 0 Xarelto 10 mg Tablet 10 mg PO DAILY@0600 Qty: 12 RF: 0 sennosides-docusate sodium [Stool Softener-Stimulant Laxat] 8.6-50 mg Tablet 2 tab PO BID Qty: 14 RF: 0 tamsulosin 0.4 mg Capsule 0.4 mg PO DAILY@1730 Qty: 14 RF: 0 Continued quinapril [Accupril] 5 MG tablet 5 mg PO DAILY RF: 0 vitamin B complex 1 EACH tablet 1 each PO DAILY RF: 0 albuterol sulfate 1 PUFF inhaler 2 puff INHALATION Q6H PRN PRN (Reason: Sob &/Or Wheezing) RF: 0 cholecalciferol (vitamin D3) 1,000 UNIT tablet 1,000 unit PO DAILY RF: 0 Discontinued ginkgo biloba 120 MG tablet 120 mg PO BID RF: 0 milk thistle (bulk) 1 GM powder 1 gm MC BID RF: 0 turmeric root extract 500 MG capsule 500 mg PO DAILY RF: 0 Saw Freedom 450 mg Capsule 450 MG capsule 2 capsule PO BID RF: 0 garlic 1,250 MG tablet 1,250 mg PO BID RF: 0 ascorbic acid (vitamin C) 500 MG tablet 500 mg PO BID RF: 0 sofia (Zingiber officinalis) 500 MG capsule 500 mg PO BID RF: 0 coenzyme Q10 100 MG capsule 100 mg PO BID RF: 0 apple cider vinegar 300 MG tablet 300 mg PO BID RF: 0 Siberian ginseng root 410 mg Capsule 1,600 mg PO DAILY RF: 0 Other Ambulatory Orders: 12 Lead EKG (Routine) Location: None Selected Ordered By: Dr. Obie Chamorro Referrals / Follow Up: Physical,Therapy [Other] - 10/30/20 1:00 pm Kurt Addison MD [Primary Care Provider] - (Schedule follow-up within 1 week. Also recommend possible referral to urologist) Gavin Medina PA-C [PHYSICIAN INVESTIGATOR [employer]UE] - 11/07/20 1:30 pm Disposition Disposition (needs filled in before D/C Order can be placed): Home, Self Care
--- NOTE | 2020-10-26 11:45 | PCM.PN.HOSP ---
Subjective Subjective Patient had a good night. He required no as needed pain medication. He did unfortunately require the replacement of a Berry catheter secondary to urinary retention at approximately midnight. The patient does report he has had a history of issues with urinary retention postoperatively and has known BPH. He has not followed up with urology in the past. Objective Data Objective Data Vital Signs: Vital Signs Temp Pulse Resp BP Pulse Ox 98.9 F 68 16 120/68 98 10/26/20 09:32 10/26/20 09:40 10/26/20 09:32 10/26/20 09:32 10/26/20 09:32 Oxygen Flow Rate (L/min) 6 Oxygen Delivery Method Room Air Weight: 93.9 kg Body Mass Index (BMI) 32.4 Intake & Output: Intake and Output for Last 24 Hours 10/24/20 10/25/20 10/26/20 23:59 23:59 23:59 Intake Total 6388.83 / 6388.83 908.92 / 908.92 Output Total 980 / 980 1650 / 1650 Balance 5408.83 / 5408.83 -741.08 / -741.08 Lab / Micro Data Result Diagrams: 10/26/20 06:04 10/26/20 06:04 Labs: Laboratory Results - last 24 hr 10/26/20 06:04: WBC 12.6 H, RBC 4.18 L, Hgb 12.7 L, Hct 38.0 L, MCV 90.9, MCH 30.4, MCHC 33.4, RDW Std Deviation 48.1 H, RDW Coeff of Noemi 14.5, Plt Count 172, MPV 10.2 10/26/20 06:04: Sodium 141, Potassium 3.8, Chloride 110 H, Carbon Dioxide 24.0, Anion Gap 7, BUN 13, Creatinine 0.84, Estim Creat Clear Calc 75.41, Est GFR (MDRD) Af Amer 116, Est GFR (MDRD) Non-Af 96, BUN/Creatinine Ratio 15.5, Glucose 117 H, Calcium 8.3 L Micro: Microbiology 10/20/20 09:30 Interface Orders SARS-CoV-2 Antigen (Rapid) - Final 10/17/20 10:33 Interface Orders Nasal Screen MRSA/MSSA - Final Radiography Diagnostic Testing: Radiology Impression Hip/Pelvis X-Ray 10/25/20 11:15 Hip X-Ray 10/25/20 12:45 IMPRESSION: Uncomplicated right hip arthroplasty. Electronically Signed: Liborio Link MD at 13:46 EDT Tel , Service support , Physical Exam Const alert, oriented x3 and no apparent distress Constitutional Narrative: Overweight white male sitting up in a chair, Occupational Therapy is at the bedside, patient appears well and nontoxic Exam Limitations: no limitations Resp normal respiratory effort, no retractions, no use of accessory muscles and clear to auscultation bilaterally Auscultation: Negative for crackles, rales, rhonchi or wheezes Cardio regular rate, regular rhythm, S1 normal heart sound, S2 normal heart sound, no murmurs, no rub, no gallops, no clicks and no JVD GI normal to inspection, nondistended, normoactive bowel sounds, soft to palpation, non-tender and non-distended; Negative for hepatosplenomegaly Extremity normal to inspection Extremity Narrative: Trace right lower extremity edema, no cyanosis or clubbing Peripheral Pulses: Yes pulses 2+ throughout Neuro oriented x3, CN's II-XII intact bilaterally, moves all extremities and no focal motor deficits Sensorium / Orientation: awake, alert, oriented to person, oriented to place and oriented to time Speech: speech normal Psych affect normal Psych Narrative: Very pleasant Assessment & Plan Assessment/Plan (1) History of total right hip replacement: (2) Urinary retention: PLAN: R hip OA status post minimally invasive anterior YARIEL -Postop day 1 -Pain management per primary service -Patient is progressing well with minimal pain -Recommend scheduled bowel regimen until patient is off narcotics -PT/OT -Suspect patient will be able to be discharged today -Okay from a medical standpoint to discharge--> may need Berry if unable to void Urinary retention -Berry placed overnight -Flomax initiated -Would trial Berry out for a void trial -If patient fails would replace Berry and have patient follow-up with Dr. Gerard as an outpatient -Suspect this is most likely related to anesthesia related to surgery in combination with his history of BPH History of right lower extremity DVT/lupus anticoagulant -Patient is not on chronic anticoagulation -History of subdural hematoma -Will be on Xarelto for prophylaxis per primary service until notified otherwise -Patient will be high risk for postoperative DVT Hypertension -Continue lisinopril COPD -Patient is on room air -Continue nebulizer as needed History of subdural hematoma -This was spontaneous and precipitated by Lovenox use -No current issues BPH -Continue Flomax DVT prophylaxis -As per primary service Charges/Coding Visit Charges Inpatient E&M: 81692 Subs Hosp L2
[2020-10-26 15:53] VITALS: BP 127/75; PULSE 79; RESP 18; TEMP 37.2; O2SAT 99
== END 2020-10-26 16:24 | disposition home or self-care (01) ==
LOC: SDC 11:00 → MS3 11:00
PROVIDERS: Anesthesiology; Admitting Provider Specialist; PCP Family Medicine; Referring Provider Specialist; Visit Provider Specialist
PROC: (CPT 27284; principal; 2020-10-25 10:05)
DX: M16.11 Unilateral primary osteoarthritis, right hip (principal); J44.9 Chronic obstructive pulmonary disease, unspecified; N44.00 Torsion of testis, unspecified; N40.1 Benign prostatic hyperplasia with lower urinary tract symptoms; R33.9 Retention of urine, unspecified; I10 Essential (primary) hypertension; E78.5 Hyperlipidemia, unspecified; D68.62 Lupus anticoagulant syndrome; Z86.12 Personal history of poliomyelitis; Z86.718 Personal history of other venous thrombosis and embolism; Z79.899 Other long term (current) drug therapy; Z87.820 Personal history of traumatic brain injury
CPT/HCPCS: 01214; 27130; 36415; 73501; 73502; 76000; 80048; 82040; 82962; 83735; 85025; 85027; 87081; 87426; 93005; 96361; 96365; 96366; 96375; 97110; 97162; 97166; 97530; 97535; 99218; 99251; C1776; C9803; J7120; A4216; G0378; G0379; G0463; J2405

== ENCOUNTER → 2020-12-25 13:45 | Outpatient (CLI) | payer MEDICARE, OTHER, SELFPAY ==
[2020-12-25 15:45] LABS: PSA,Total- Diagnostic 4.78 ng/mL (0.0-4.0)
== END ==
PROVIDERS: PCP Family Medicine; Referring Provider Family Medicine; Visit Provider Family Medicine
DX: R97.20 Elevated prostate specific antigen [PSA] (principal)
CPT/HCPCS: 36415; 84153

== ENCOUNTER → 2021-03-05 11:23 | Outpatient (CLI) | payer MEDICARE, OTHER, SELFPAY | PROVIDERS: PCP Family Medicine; Visit Provider Nurse Practitioner Family | DX: Z20.822 Contact with and (suspected) exposure to COVID-19 (principal) | CPT/HCPCS: 36415; 86769 ==

== ENCOUNTER 2021-04-23 08:00 | Outpatient (CLI) | payer MEDICARE, OTHER, SELFPAY ==
--- NOTE | 2021-04-23 08:11 | MRI_ITS ---
STUDY: MRI BRAIN WITH AND WITHOUT CONTRAST (ATTENTION INTERNAL AUDITORY CANALS - I.A.C.''s) REASON FOR EXAM: Male, 70 years old. Asymmetric hearing loss. Ringing and hearing loss in right ear x15 years. Subdural hematoma in [address] CT[address] TECHNIQUE: Standardized multiplanar fat and water weighted pulse sequences were obtained. IV 18mL Dotarem was administered for the contrast portion of the examination. COMPARISON: CT head scan without contrast 05/04/2011. FINDINGS: Normal bilateral temporal bones. Normal bilateral internal auditory canals. There is no demonstrated intracanalicular or cisternal vestibular schwannoma (acoustic neuroma). There is no enhancement of the bilateral VIIth or VIIIth cranial nerves. Normal bilateral cochlea, vestibules and semicircular canals. Normal size of the ventricles and extra-axial spaces for the patient''s age. Normal white matter tracts of the supratentorial brain. 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 Normal bilateral basal ganglia. Normal thalami. Normal flow voids within the major intracranial circulation suggesting patency by spin echo criteria. Normal venous enhancement. There is no enhancing intra-axial or extra-axial abnormality. There is no extra-axial fluid accumulation. Interval resolution of the bilateral subdural hematomas. Normal sella turcica, pituitary gland, infundibular stalk, optic chiasm and hypothalamus. Normal tectal plate and pineal gland. Normal midbrain, joie and medulla. Normal cerebellum. Normal basal cisterns. No demonstrated orbital abnormality, within the constraints of a routine brain study. Mucosal edema and thickening in the left ethmoid sinus. Minimal mucosal thickening in the right maxillary sinus. Small mucous retention cysts in both maxillary sinuses. Normal calvarium and skull base. Normal visualized soft tissue structures. Normal visualized upper cervical spine. MRI/Brain W/WO Contrast IMPRESSION: 1. Normal unenhanced and enhanced MRI of the bilateral internal auditory canals (I.A.C''s). 2. 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 Electronically Signed: Luis Angel Kimbrough MD at 16:18 EST , Service support ,
[2021-04-23 08:26] LABS: CREATININE FINGERSTICK < 0.6 mg/dL (0.70-1.30); EGFR FINGERSTICK > 60.0000 mL/min (>60)
== END 2021-04-23 23:59 | disposition short-term general hospital (02) ==
LOC: MRI 08:03
PROVIDERS: PCP Family Medicine; Referring Provider Otolaryngology Otolaryngology/Facial Plastic Surgery; Visit Provider Otolaryngology Otolaryngology/Facial Plastic Surgery
DX: H90.3 Sensorineural hearing loss, bilateral (principal)
CPT/HCPCS: 70553; A9575

== ENCOUNTER 2021-06-11 10:34 | Outpatient (CLI) | payer MEDICARE, OTHER, SELFPAY ==
[2021-06-11 12:16] LABS: Absolute Lymphocyte Count 0.96 X10^3/uL (0.83-4.51); Absolute Neutrophil Count 4.1 X10^3/uL (2.0-7.7); Basophil# 0.03 X10^3/uL; Basophil% 0.5 % (0-1); Eosinophil# 0.12 X10^3/uL; Eosinophils% 2.1 % (0-5); Hemoglobin 15.6 g/dL (13.0-16.5); Lymphocyte # 0.96 X10^3/ul (0.83-4.51); Lymphocyte % 16.8 % (19-41); Mean Corp Hgb Conc 33.2 g/dL (32-36); Mean Corpuscular Hgb 29.9 pg (27.0-32.0); Mean Corpuscular Volume 90.2 fL (80-94); Mean Platelet Vol. 10.3 fl (6.2-12.0); Monocyte# 0.47 X10^3/uL; Monocyte% 8.2 % (0-10); NRBC Flagged by Analyzer 0 % (0-5); Neutrophil # 4.11 X10^3/uL (2.7-7.7); Platelet Count 184 K/mm3 (150-450); RBC Distribution Width CV 13.9 % (11.6-14.6); RBC Distribution Width SD 46.3 fl (35.1-43.9); Red Blood Count 5.21 M/mm3 (4.6-6.2); White Blood Count 5.7 K/mm3 (4.4-11.0)
[2021-06-11 12:27] LABS: ALB/GLOB Ratio 1.1 RATIO (0.9-2.4); AST(SGOT) 19 U/L (15-37); Alanine Aminotransfer ALT/SGPT 23 U/L (16-61); Albumin, Serum 3.7 g/dL (3.2-5.0); Alkaline Phosphatase 50 U/L (45-117); Anion Gap 4 (5-15); BUN 16 mg/dL (7-18); BUN/Creat Ratio 16.5 RATIO (10-20); Calcium,Total 8.9 mg/dL (8.5-10.1); Chloride 111 mmol/L (98-107); Cholesterol 227 mg/dL (200); Creatinine, Serum 0.97 mg/dL (0.70-1.30); EST Glomerular Filtration Rate 81 mL/min (>60); Est Glom Filt Rate - Afr Amer 98 mL/min (>60); Globulin 3.5 g/dL (2.2-4.2); Glucose 108 mg/dL (74-106); High Density Lipoprotein 37 mg/dL; Potassium 4.1 mmol/L (3.5-5.1); Protein, Total 7.2 g/dL (6.4-8.2); Sodium Level 141 mmol/L (136-145); Triglycerides 127 mg/dL; Very Low Density Lipoprotein 25 mg/dL (5-40)
[2021-06-11 13:27] LABS: Hemoglobin A1c 5.3 % (3.8-5.6)
== END 2021-06-11 23:59 | disposition home or self-care (01) ==
LOC: MFPLAB 10:39
PROVIDERS: PCP Family Medicine; Referring Provider Family Medicine; Visit Provider Family Medicine
DX: I10 Essential (primary) hypertension (principal); J44.9 Chronic obstructive pulmonary disease, unspecified; E66.01 Morbid (severe) obesity due to excess calories; D68.62 Lupus anticoagulant syndrome
CPT/HCPCS: 36415; 80053; 80061; 83036; 85025

== ENCOUNTER 2021-07-09 11:14 | Outpatient (CLI) | payer MEDICARE, OTHER, SELFPAY ==
[2021-07-09 12:24] LABS: Absolute Lymphocyte Count 1.02 X10^3/uL (0.83-4.51); Absolute Neutrophil Count 3.5 X10^3/uL (2.0-7.7); Basophil# 0.04 X10^3/uL; Basophil% 0.8 % (0-1); Hematocrit 47.1 % (40-54); Hemoglobin 15.8 g/dL (13.0-16.5); Lymphocyte # 1.02 X10^3/ul (0.83-4.51); Lymphocyte % 19.9 % (19-41); Mean Corp Hgb Conc 33.5 g/dL (32-36); Mean Corpuscular Hgb 30.5 pg (27.0-32.0); Mean Corpuscular Volume 90.9 fL (80-94); Mean Platelet Vol. 10.6 fl (6.2-12.0); Monocyte# 0.45 X10^3/uL; Monocyte% 8.8 % (0-10); NRBC Flagged by Analyzer 0 % (0-5); Neutrophil % 68.3 % (47-70); Platelet Count 172 K/mm3 (150-450); RBC Distribution Width CV 13.9 % (11.6-14.6); RBC Distribution Width SD 46.6 fl (35.1-43.9); Red Blood Count 5.18 M/mm3 (4.6-6.2); White Blood Count 5.1 K/mm3 (4.4-11.0)
[2021-07-09 12:37] LABS: Ammonia < 10.0 umol/L (11-32)
[2021-07-09 13:01] LABS: ALB/GLOB Ratio 1.1 RATIO (0.9-2.4); AST(SGOT) 18 U/L (15-37); Alanine Aminotransfer ALT/SGPT 29 U/L (16-61); Albumin, Serum 3.8 g/dL (3.2-5.0); Alkaline Phosphatase 48 U/L (45-117); Anion Gap 4 (5-15); BUN 15 mg/dL (7-18); BUN/Creat Ratio 15.8 RATIO (10-20); CPK Total, Creatine Kinase 76 U/L (39-308); Calcium,Total 8.7 mg/dL (8.5-10.1); Chloride 108 mmol/L (98-107); Creatinine, Serum 0.95 mg/dL (0.70-1.30); EST Glomerular Filtration Rate 83 mL/min (>60); Est Glom Filt Rate - Afr Amer 100 mL/min (>60); Globulin 3.4 g/dL (2.2-4.2); Glucose 110 mg/dL (74-106); Potassium 4.5 mmol/L (3.5-5.1); Protein, Total 7.2 g/dL (6.4-8.2); Sodium Level 140 mmol/L (136-145)
== END 2021-07-09 23:59 | disposition home or self-care (01) ==
LOC: MFPLAB 11:15
PROVIDERS: PCP Family Medicine; Visit Provider Family Medicine
DX: E78.00 Pure hypercholesterolemia, unspecified (principal); Z78.9 Other specified health status
CPT/HCPCS: 36415; 80053; 82140; 82550; 85025

== ENCOUNTER → 2021-12-25 | Outpatient (CLI) | payer MEDICARE, OTHER, SELFPAY ==
[2021-12-25 13:08] LABS: AST(SGOT) 19 U/L (15-37); Alanine Aminotransfer ALT/SGPT 30 U/L (16-61); Albumin, Serum 3.6 g/dL (3.2-5.0); Alkaline Phosphatase 47 U/L (45-117); Anion Gap 6 (5-15); BUN 16 mg/dL (7-18); BUN/Creat Ratio 16.2 RATIO (10-20); Calcium,Total 8.5 mg/dL (8.5-10.1); Chloride 110 mmol/L (98-107); Creatinine, Serum 0.98 mg/dL (0.70-1.30); EST Glomerular Filtration Rate 79 mL/min (>60); Est Glom Filt Rate - Afr Amer 96 mL/min (>60); Globulin 3.5 g/dL (2.2-4.2); Glucose 100 mg/dL (74-106); PSA,Total- Diagnostic 4.83 ng/mL (0.0-4.0); Potassium 3.9 mmol/L (3.5-5.1); Protein, Total 7.1 g/dL (6.4-8.2); Sodium Level 142 mmol/L (136-145); Thyroid Stim Hormone (TSH) 4.67 uIU/mL (0.358-3.74)
[2022-01-01 16:32] LABS: Vitamin A, Retinol 48.3 ug/dL (22.0-69.5)
== END | disposition home or self-care (01) ==
PROVIDERS: PCP Family Medicine; Visit Provider Family Medicine
DX: N40.0 Benign prostatic hyperplasia without lower urinary tract symptoms (principal); R53.83 Other fatigue; E78.00 Pure hypercholesterolemia, unspecified; I10 Essential (primary) hypertension; Z79.899 Other long term (current) drug therapy
CPT/HCPCS: 36415; 80053; 84153; 84443; 84590

== ENCOUNTER → 2024-01-19 | Outpatient (CLI) | payer MEDICARE, SELFPAY ==
[2024-01-19 12:14] LABS: Absolute Lymphocyte Count 1.09 X10^3/uL (0.83-4.51); Absolute Neutrophil Count 4.3 X10^3/uL (2.0-7.7); Basophil# 0.04 X10^3/uL; Basophil% 0.6 % (0-1); Eosinophil# 0.17 X10^3/uL; Eosinophils% 2.7 % (0-5); Hematocrit 46.6 % (40-54); Hemoglobin 15.3 g/dL (13.0-16.5); Lymphocyte # 1.09 X10^3/ul (0.83-4.51); Lymphocyte % 17.6 % (19-41); Mean Corp Hgb Conc 32.8 g/dL (32-36); Mean Corpuscular Hgb 30.1 pg (27.0-32.0); Mean Corpuscular Volume 91.6 fL (80-94); Mean Platelet Vol. 10.5 fl (6.2-12.0); Monocyte# 0.54 X10^3/uL; Monocyte% 8.7 % (0-10); NRBC Flagged by Analyzer 0 % (0-5); Neutrophil # 4.34 X10^3/uL (2.7-7.7); Neutrophil % 70.1 % (47-70); Platelet Count 181 K/mm3 (150-450); RBC Distribution Width CV 13.6 % (11.6-14.6); RBC Distribution Width SD 45.8 fl (35.1-43.9); Red Blood Count 5.09 M/mm3 (4.6-6.2); White Blood Count 6.2 K/mm3 (4.4-11.0)
[2024-01-19 12:48] LABS: AST(SGOT) 18 U/L (15-37); Alanine Aminotransfer ALT/SGPT 26 U/L (16-61); Albumin, Serum 3.7 g/dL (3.2-5.0); Alkaline Phosphatase 45 U/L (45-117); Anion Gap 6 (5-15); BUN 18 mg/dL (7-18); BUN/Creat Ratio 19.1 RATIO (10-20); Chloride 111 mmol/L (98-107); Cholesterol 239 mg/dL (200); Creatinine, Serum 0.94 mg/dL (0.70-1.30); EST Glomerular Filtration Rate 83 mL/min (>60); Est Glom Filt Rate - Afr Amer 101 mL/min (>60); Globulin 3.6 g/dL (2.2-4.2); Glucose 104 mg/dL (74-106); High Density Lipoprotein 39 mg/dL; PSA,Total- Diagnostic 8.84 ng/mL (0.0-4.0); Potassium 3.8 mmol/L (3.5-5.1); Protein, Total 7.3 g/dL (6.4-8.2); Sodium Level 142 mmol/L (136-145); Triglycerides 172 mg/dL; Very Low Density Lipoprotein 34 mg/dL (5-40)
[2024-01-19 13:24] LABS: Microalbumin:Creatinine Ratio 118.9 mg/g CRE (<30 mg/g CRE)
== END | disposition home or self-care (01) ==
PROVIDERS: PCP Family Medicine; Referring Provider Family Medicine; Visit Provider Family Medicine
DX: E88.810 Metabolic syndrome (principal); J44.9 Chronic obstructive pulmonary disease, unspecified; I10 Essential (primary) hypertension; R79.89 Other specified abnormal findings of blood chemistry; N40.0 Benign prostatic hyperplasia without lower urinary tract symptoms
CPT/HCPCS: 36415; 80053; 80061; 82043; 82570; 84153; 84443; 85025

== ENCOUNTER → 2024-04-19 | Outpatient (CLI) | payer MEDICARE, SELFPAY ==
[2024-04-19 12:32] LABS: PSA,Total- Diagnostic 6.25 ng/mL (0.0-4.0)
== END | disposition home or self-care (01) ==
PROVIDERS: PCP Family Medicine; Referring Provider Family Medicine; Visit Provider Family Medicine
DX: R97.20 Elevated prostate specific antigen [PSA] (principal); R79.89 Other specified abnormal findings of blood chemistry
CPT/HCPCS: 36415; 84153; 84443

== ENCOUNTER → 2025-01-26 | Outpatient (CLI) | payer MEDICARE, SELFPAY ==
[2025-01-26 11:08] LABS: Creatinine, Urine (random) 100.00 mg/dL (39.00-259.00); Microalbumin,Random Urine 162.0 mg/L (<20 mg/L)
[2025-01-26 11:51] LABS: AST(SGOT) 19 U/L (<=37); Alanine Aminotransfer ALT/SGPT 16 U/L (<=46); Albumin, Serum 4.2 g/dL (3.4-4.8); Alkaline Phosphatase 54 U/L (40-129); Anion Gap 12 (5-15); BUN 17 mg/dL (4-19); BUN/Creat Ratio 16.7 RATIO (10-20); Calcium,Total 9.2 mg/dL (7.6-11.0); Carbon Dioxide 23.4 mmol/L (21.0-32.0); Chloride 106 mmol/L (98-108); Cholesterol 204 mg/dL (<=200); Globulin 2.8 g/dL (2.2-4.2); Glucose 109 mg/dL (70-99); Low Density Lipoprotein Calc. 143 mg/dL; PSA,Total- Diagnostic 6.24 ng/mL (0.00-4.00); Potassium 4.1 mmol/L (3.3-5.1); Triglycerides 117 mg/dL; Very Low Density Lipoprotein 23 mg/dL (5-40); cholesterol:hdl ratio screen 5.48
== END | disposition home or self-care (01) ==
LOC: MTLAB 08:56
PROVIDERS: PCP Family Medicine; Referring Provider Family Medicine; Visit Provider Family Medicine
DX: E88.810 Metabolic syndrome (principal); G14 Postpolio syndrome; N40.0 Benign prostatic hyperplasia without lower urinary tract symptoms; R79.89 Other specified abnormal findings of blood chemistry
CPT/HCPCS: 36415; 80053; 80061; 82043; 82570; 84153; 84443